=== PATIENT | female | born 1940 | race Caucasian/White ===

== ENCOUNTER 2020-10-04 09:27 | Outpatient (CLI) | payer MEDICARE, OTHER, MEDICAID | END 2020-10-04 09:28 | disposition home or self-care (01) | LOC: CSHWCC 09:27 | PROVIDERS: ATTEND Nurse Practitioner Family | DX: L89.153 Pressure ulcer of sacral region, stage 3 (principal); L89.891 Pressure ulcer of other site, stage 1; U07.1 COVID-19; E03.9 Hypothyroidism, unspecified; F03.91 Unspecified dementia, unspecified severity, with behavioral disturbance; F32.9 Major depressive disorder, single episode, unspecified; G20 Parkinson's disease; I10 Essential (primary) hypertension; Z74.01 Bed confinement status | CPT/HCPCS: 11042; 99203; G0463 ==